=== PATIENT | male | born 1990 | race Hispanic/Latino ===

== ENCOUNTER 2020-08-24 19:45 | Emergency (ER) | payer OTHER ==
[2020-08-24 20:32] LABS: Urine Blood NEGATIVE (NEG); Urine Glucose NEGATIVE (NEG); Urine Protein NEGATIVE (NEG); Urine Specific Gravity 1.005 (1.005-1.030); Urine pH 5.5 (5.0-7.0)
--- NOTE | 2020-08-24 20:35 | EDPHYS ---
Physician Documentation [facility] Name: Dmitriy Stubbs Age: 30 yrs Sex: Male : 1990 Arrival Date: 08/24/2020 Time: 19:54 Bed 8 Private MD: ED Physician Dilip Morejon HPI: 08/24 20:28 This 30 yrs old Male presents to ER via Ambulatory with complaints of Numbness dashawn - LEGS, Pelvic Pain, Pain With Urination. 20:28 The patient's problem is reported as paresthesias, in left lower extremity. dashawn Historical: - Allergies: 20:00 No Known Allergies; ca1 - Home Meds: 20:00 None [Active]; ca1 - PMHx: 20:00 None; ca1 - PSHx: 20:00 None; ca1 - Immunization history:: Adult Immunizations up to date, Flu vaccine is not up to date. - Social history:: Smoking status: Patient denies any tobacco usage or history of. ROS: 20:29 Constitutional: Negative for fever, chills, and weight loss, Eyes: Negative for injury, dashawn pain, redness, and discharge, ENT: Negative for injury, pain, and discharge, Neck: Negative for injury, pain, and swelling, Cardiovascular: Negative for chest pain, palpitations, and edema, Respiratory: Negative for shortness of breath, cough, wheezing, and pleuritic chest pain, Abdomen/GI: Negative for abdominal pain, nausea, vomiting, diarrhea, and constipation, Back: Negative for injury and pain, Skin: Negative for injury, rash, and discoloration, Psych: Negative for depression, anxiety, suicide ideation, homicidal ideation, and hallucinations, Allergy/Immunology: Negative for hives, rash, and allergies, Endocrine: Negative for neck swelling, polydipsia, polyuria, polyphagia, and marked weight changes. 20:29 : Positive for burning with urination. 20:29 Neuro: Positive for tingling, of the left leg. Exam: 20:29 Constitutional: This is a well developed, well nourished patient who is awake, alert, dashawn and in no acute distress. Head/Face: Normocephalic, atraumatic. Eyes: Pupils equal round and reactive to light, extra-ocular motions intact. Lids and lashes normal. Conjunctiva and sclera are non-icteric and not injected. Cornea within normal limits. Periorbital areas with no swelling, redness, or edema. ENT: Nares patent. No nasal discharge, no septal abnormalities noted. Tympanic membranes are normal and external auditory canals are clear. Oropharynx with no redness, swelling, or masses, exudates, or evidence of obstruction, uvula midline. Mucous membranes moist. Neck: Trachea midline, no thyromegaly or masses palpated, and no cervical lymphadenopathy. Supple, full range of motion without nuchal rigidity, or vertebral point tenderness. No Meningismus. Chest/axilla: Normal chest wall appearance and motion. Nontender with no deformity. No lesions are appreciated. Cardiovascular: Regular rate and rhythm with a normal S1 and S2. No gallops, murmurs, or rubs. Normal PMI, no JVD. No pulse deficits. Respiratory: Lungs have equal breath sounds bilaterally, clear to auscultation and percussion. No rales, rhonchi or wheezes noted. No increased work of breathing, no retractions or nasal flaring. Abdomen/GI: Soft, non-tender, with normal bowel sounds. No distension or tympany. No guarding or rebound. No evidence of tenderness throughout. Back: No spinal tenderness. No costovertebral tenderness. Full range of motion. Male : Normal genitalia with no discharge or lesions. Skin: Warm, dry with normal turgor. Normal color with no rashes, no lesions, and no evidence of cellulitis. MS/ Extremity: Pulses equal, no cyanosis. Neurovascular intact. Full, normal range of motion. Neuro: Awake and alert, GCS 15, oriented to person, place, time, and situation. Cranial nerves II-XII grossly intact. Motor strength 5/5 in all extremities. Sensory grossly intact. Cerebellar exam normal. Normal gait. Psych: Awake, alert, with orientation to person, place and time. Behavior, mood, and affect are within normal limits. 20:29 : CVA tenderness, is absent, Male external genitalia: normal, Bladder: is normal, Sexual behavior: the patient is sexually active, and reports a single partner. 20:33 CT study not indicated or reported. Reason for not performing CT: not done, na dashawn Vital Signs: 19:58 BP 134 / 95; Pulse 67; Resp 18 S; Temp 98.2(TE); Pulse Ox 100% on R/A; Weight 77.11 kg ca1 (R); Height 5 ft. 6 in. (167.64 cm) (R); Pain 0/10; 19:58 Body Mass Index 27.44 (77.11 kg, 167.64 cm) ca1 MDM: 20:21 Patient medically screened. [facility] 20:32 Differential diagnosis: CVA, TIA, metabolic disorder. Data reviewed: vital signs, [facility] nurses notes. 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 rate is 67 beats/min, rhythm is regular, Pulse oximetry: on room air is 100 %. Counseling: I had a detailed discussion with the patient and/or guardian regarding: the historical points, exam findings, and any diagnostic results supporting the discharge/admit diagnosis, the need for outpatient follow up, for definitive care, a family practitioner, a neurologist. 08/24 20:11 Order name: Urine Dipstick--Ancillary (enter results) ds4 08/24 20:33 Order name: Urine Dipstick-Ancillary EDMS Administered Medications: No medications were administered Disposition: 08/24/20 20:34 Discharged to Home. Impression: Pain in left leg, Dysuria. - Condition is Stable. - Discharge Instructions: Dysuria, Musculoskeletal Pain. - Prescriptions for Ibuprofen 600 mg Oral Tablet - take 1 tablet by ORAL route every 6 hours As needed take with food; 20 tablet. - Medication Reconciliation Form, Thank You Letter, Antibiotic Education, Prescription Opioid Use form. - Follow up: Private Physician; When: 2 - 3 days; Reason: Recheck today's complaints, Continuance of care, Re-evaluation by your physician. Follow up: Argentina Johnston DO; When: 2 - 3 days; Reason: Recheck today's complaints, Re-evaluation by your physician. Follow up: Sean Ahmadi MD; When: 2 - 3 days; Reason: Recheck today's complaints, Re-evaluation by your physician. - Problem is new. - Symptoms have improved. Signatures: Dispatcher [employer] EDMS Dilip Morejon MD MD cha Acob, Cheryl RN RN ca1 Radha Dennison RN RN ll2 Corrections: (The following items were deleted from the chart) 20:43 20:34 08/24/2020 20:34 Discharged to Home. Impression: Pain in left leg; Dysuria. ll2 Condition is Stable. Forms are Medication Reconciliation Form, Thank You Letter, Antibiotic Education, Prescription Opioid Use. Follow up: Private Physician; When: 2 - 3 days; Reason: Recheck today's complaints, Continuance of care, Re-evaluation by your physician. Follow up: Argentina Johnston; When: 2 - 3 days; Reason: Recheck today's complaints, Re-evaluation by your physician. Follow up: Sean Ahmadi; When: 2 - 3 days; Reason: Recheck today's complaints, Re-evaluation by your physician. Problem is new. Symptoms have improved. dashawn
--- NOTE | 2020-08-24 20:35 | ER ---
Nurse's Notes [facility] Name: Dmitriy Stubbs Age: 30 yrs Sex: Male : 1990 Arrival Date: 08/24/2020 Time: 19:54 Bed 8 Private MD: Diagnosis: Pain in left leg;Dysuria Presentation: 08/24 19:58 Chief complaint: Patient states: I've feeling really weird on my L foot, like numb and ca1 cold, started yesterday. I also feel a little discomfort when I urinate, it also hurts a bit when I ejaculate and some discomfort on the L inguinal area. Denies fever. Coronavirus screen: Client denies travel out of the [place] in the last 14 days. At this time, the client does not indicate any symptoms associated with coronavirus-19. Ebola Screen: Patient negative for fever greater than or equal to 101.5 degrees Fahrenheit, and additional compatible Ebola Virus Disease symptoms Patient denies exposure to infectious person. Patient denies travel to an Ebola-affected area in the 21 days before illness onset. No symptoms or risks identified at this time. Initial Sepsis Screen: Does the patient meet any 2 criteria? No. Patient's initial sepsis screen is negative. Does the patient have a suspected source of infection? No. Patient's initial sepsis screen is negative. Risk Assessment: Do you want to hurt yourself or someone else? Patient reports no desire to harm self or others. Onset of symptoms was August 24, 2020. 19:58 Method Of Arrival: Ambulatory ca1 19:58 Acuity: JOEY 3 ca1 Triage Assessment: 20:42 General: Appears in no apparent distress. Behavior is calm, cooperative, appropriate ll2 for age. Pain: Complains of pain in left leg. EENT: No signs and/or symptoms were reported regarding the EENT system. Neuro: Level of Consciousness is awake, alert, obeys commands, Oriented to person, place, time, situation. Cardiovascular: Patient's skin is warm and dry. Respiratory: Airway is patent Respiratory effort is even, unlabored, Respiratory pattern is regular, symmetrical. GI: No signs and/or symptoms were reported involving the gastrointestinal system. : No signs and/or symptoms were reported regarding the genitourinary system. Derm: Skin is intact, is healthy with good turgor, Skin is dry, Skin is pink, warm \T\ dry. Musculoskeletal: Circulation, motion, and sensation intact. Range of motion: intact in all extremities. Historical: - Allergies: 20:00 No Known Allergies; ca1 - Home Meds: 20:00 None [Active]; ca1 - PMHx: 20:00 None; ca1 - PSHx: 20:00 None; ca1 - Immunization history:: Adult Immunizations up to date, Flu vaccine is not up to date. - Social history:: Smoking status: Patient denies any tobacco usage or history of. Screenin:42 Abuse screen: Denies threats or abuse. Nutritional screening: No deficits noted. ll2 Tuberculosis screening: No symptoms or risk factors identified. Fall Risk None identified. Assessment: 20:05 General: Appears in no apparent distress. Behavior is calm, cooperative, appropriate ll2 for age. Vital Signs: 19:58 BP 134 / 95; Pulse 67; Resp 18 S; Temp 98.2(TE); Pulse Ox 100% on R/A; Weight 77.11 kg ca1 (R); Height 5 ft. 6 in. (167.64 cm) (R); Pain 0/10; 19:58 Body Mass Index 27.44 (77.11 kg, 167.64 cm) ca1 ED Course: 19:54 Patient arrived in ED. am2 20:00 Triage completed. ca1 20:00 Arm band placed on right wrist. ca1 20:21 Dilip Morejon MD is Attending Physician. [facility] 20:33 Argentina Johnston DO is Referral Physician. dashawn 20:33 Sean Ahmadi MD is Referral Physician. dashawn 20:39 Radha Dennison RN is Primary Nurse. ll2 20:43 Patient has correct armband on for positive identification. Pulse ox on. NIBP on. ll2 20:43 No provider procedures requiring assistance completed. Patient did not have IV access ll2 during this emergency room visit. Administered Medications: No medications were administered Outcome: 20:34 Discharge ordered by . dashawn 20:43 Discharged to home ambulatory. ll2 20:43 Condition: stable 20:43 Discharge instructions given to patient, Instructed on discharge instructions, follow up and referral plans. medication usage, Demonstrated understanding of instructions, follow-up care, medications, Prescriptions given X 1. 20:43 Patient left the ED. ll2 Signatures: Dilip Morejon MD MD cha Moreno, Amanda am2 Daria Irizarry, RN RN ca1 Radha Dennison, ALEX RN ll2
[2020-08-28 01:53] VITALS: BP 134/95; TEMP 98.2; O2SAT 100
== END 2020-08-24 20:43 | disposition home or self-care (01) ==
LOC: ER 19:45
DX: R30.0 Dysuria (principal)
CPT/HCPCS: 81003; 99283